=== PATIENT | female | born 1985 | race Caucasian/White ===

== ENCOUNTER 2021-05-05 01:58 | Observation (INO) ==
--- NOTE | 2021-05-05 02:55 | Progress Note ---
Date of Service May 05, 2021 Assessment & Plan (1) Vaginal bleeding during : Plan: Pt is 35yo at 33 weeks , unremarkable course presents with bleeding. denies recent intercourse FHR ; CAT No ctx SSE: Thick cervix. close, mild mucus bloody disch from cervical os Plan IVH labs sonogram Results & Data ([facility]) Vital Signs (Past 12 Hours) Vital Signs Temp Pulse Resp BP 05/05/21 02:10 36.7 C 18 05/05/21 02:08 36.7 C 18 05/05/21 02:07 99 H 130/80
[2021-05-05] MEDS: LACTATED RINGER'S 1,000 ML IV PRN ×3 (02:57→11:23)
[2021-05-05] MEDS ORDERED: BETAMETH SOD PHOS/ACETATE IA 6 MG/ML ONE (03:11)
[2021-05-05] MEDS ORDERED: BETAMETH SOD PHOS/ACETATE IA 6 MG/ML IM STA (03:13)
[2021-05-05 03:16] LABS: Hematocrit (blood only) 33.5 % (37-47); Hemoglobin 11.2 g/dL (12.0-16.0); Mean Corpuscular Hemoglobin 30.1 pg (25-34); Mean Corpuscular Hgb Conc 33.4 g/dL (32-36); Mean Corpuscular Volume 90.1 fL (80-100); Mean Platelet Volume 9.6 fL (7.4-10.4); Platelet Count 196 K/uL (130-400); RDW Coefficient of Variation 13.2 % (11.5-14.5); RDW Standard Deviation 43.5 fL (36.4-46.3); Red Blood Count 3.72 M/uL (4.2-5.4); White Blood Count 12.57 K/uL (4.8-10.8)
[2021-05-05 03:33] LABS: Albumin Level 2.4 gm/dl (3.4-5.0); BUN Creatinine Ratio 10.8 (10-20); Calcium 8.5 mg/dl (8.5-10.1); Est GFR (Non-African American) 121.7 ml/min; Potassium 3.3 mmol/L (3.5-5.1)
[2021-05-05 03:36] LABS: Albumin Globulin Ratio 0.6 (0.9-2); Bilirubin,Total 0.1 mg/dl (0.2-1); Globulin 3.9 gm/dl (2.5-4.0); Total Protein 6.3 gm/dl (6.4-8.2)
[2021-05-05 03:59] LABS: Fibrinogen 455 mg/dl (184-400); INR 0.9 (0.9-1.1); Partial Thromboplastin Time 25.5 Seconds (21.0-31.0); Prothrombin Time 9.6 Seconds (9.0-12.0)
[2021-05-05 04:08] LABS: ALC (manual) 1.86 K/uL (1.2-3.4); ANC (manual) 9.84 K/uL (1.4-6.5); Basophils # (manual) 0.21 K/uL (0-0.2); Basophils % (manual) 1.7 %; Eosinophils # (manual) 0.11 K/uL (0-0.5); Eosinophils % (manual) 0.9 %; Lymphocytes # (manual) 1.86 K/uL (1.2-3.4); Lymphocytes % (manual) 14.8 %; Monocytes # (manual) 0.33 K/uL (0.11-0.59); Monocytes % (manual) 2.6 %; Myelocytes # (manual) 0.21 K/uL (0-0); Myelocytes % (manual) 1.7 %; Neutrophils # (manual) 9.84 K/uL (1.4-6.5); Neutrophils % (manual) 78.3 %; Polychromasia 1+
--- NOTE | 2021-05-05 08:26 | Obstetrical Progress Note ---
Date of Service May 05, 2021 Assessment & Plan Admission and Anticipated Discharge Date Admission Date: May 05, 2021 Subjective Patient is a 35 yo AT 33.1 WKS presented with VB this morning Started around at 01 am with wiping only, red blood on toilet paperx4 Nothing on underwear Now it is more brownish on paper Mild cramping on and off, not painful. +FM's has been uncomplicated NST reactive US report pending, per pictures, cervix closed 4.3 cm, placenta anterior, breech, KARMA 13 cm Lab Results 05/05/21 05/05/21 05/05/21 Range/Units 03:06 03:06 03:06 WBC 12.57 H (4.8-10.8) K/uL RBC 3.72 L (4.2-5.4) M/uL Hgb 11.2 L (12.0-16.0) g/dL Hct 33.5 L (37-47) % MCV 90.1 (80-100) fL MCH 30.1 (25-34) pg MCHC 33.4 (32-36) g/dL RDW Std Deviation 43.5 (36.4-46.3) fL RDW Coeff of Jessie 13.2 (11.5-14.5) % Plt Count 196 (130-400) K/uL MPV 9.6 (7.4-10.4) fL Neutrophils % (Manual) 78.3 % Lymphocytes % (Manual) 14.8 % Monocytes % (Manual) 2.6 % Eosinophils % (Manual) 0.9 % Basophils % (Manual) 1.7 % Myelocytes % (Man) 1.7 % Neutrophils # (Manual) 9.84 H (1.4-6.5) K/uL Total Absolute Neuts 9.84 H (1.4-6.5) K/uL Lymphocytes # (Manual) 1.86 (1.2-3.4) K/uL Total Abs Lymphocytes 1.86 (1.2-3.4) K/uL Monocytes # (Manual) 0.33 (0.11-0.59) K/uL Eosinophils # (Manual) 0.11 (0-0.5) K/uL Basophils # (Manual) 0.21 H (0-0.2) K/uL Myelocytes # (Manual) 0.21 H (0-0) K/uL Polychromasia 1+ PT 9.6 (9.0-12.0) Seconds INR 0.9 (0.9-1.1) APTT 25.5 (21.0-31.0) Seconds PTT Ratio 1.0 Fibrinogen 455 H (184-400) mg/dl Fibrin Degrad Products (<10) mcg/ml Sodium 138 (136-145) mmol/L Potassium 3.3 L (3.5-5.1) mmol/L Chloride 110 H (98-107) mmol/L Carbon Dioxide 20 L (21-32) mmol/L Anion Gap 8.0 (3-11) BUN 6 L (7-18) mg/dl Creatinine 0.56 L (0.6-1.2) mg/dl Est Cr Clr Drug Dosing 142.0 ml/min Est GFR ( Amer) 141.0 ml/min Est GFR (Non-Af Amer) 121.7 ml/min BUN/Creatinine Ratio 10.8 (10-20) Glucose 98 (70-99) mg/dl Calcium 8.5 (8.5-10.1) mg/dl Total Bilirubin 0.1 L (0.2-1) mg/dl AST 16 (15-37) U/L ALT 11 L (12-78) U/L Alkaline Phosphatase 74 (45-117) U/L Total Protein 6.3 L (6.4-8.2) gm/dl Albumin 2.4 L (3.4-5.0) gm/dl Globulin 3.9 (2.5-4.0) gm/dl Albumin/Globulin Ratio 0.6 L (0.9-2) 05/05/21 Range/Units 03:06 WBC (4.8-10.8) K/uL RBC (4.2-5.4) M/uL Hgb (12.0-16.0) g/dL Hct (37-47) % MCV (80-100) fL MCH (25-34) pg MCHC (32-36) g/dL RDW Std Deviation (36.4-46.3) fL RDW Coeff of Jessie (11.5-14.5) % Plt Count (130-400) K/uL MPV (7.4-10.4) fL Neutrophils % (Manual) % Lymphocytes % (Manual) % Monocytes % (Manual) % Eosinophils % (Manual) % Basophils % (Manual) % Myelocytes % (Man) % Neutrophils # (Manual) (1.4-6.5) K/uL Total Absolute Neuts (1.4-6.5) K/uL Lymphocytes # (Manual) (1.2-3.4) K/uL Total Abs Lymphocytes (1.2-3.4) K/uL Monocytes # (Manual) (0.11-0.59) K/uL Eosinophils # (Manual) (0-0.5) K/uL Basophils # (Manual) (0-0.2) K/uL Myelocytes # (Manual) (0-0) K/uL Polychromasia PT (9.0-12.0) Seconds INR (0.9-1.1) APTT (21.0-31.0) Seconds PTT Ratio Fibrinogen (184-400) mg/dl Fibrin Degrad Products <10 (<10) mcg/ml Sodium (136-145) mmol/L Potassium (3.5-5.1) mmol/L Chloride (98-107) mmol/L Carbon Dioxide (21-32) mmol/L Anion Gap (3-11) BUN (7-18) mg/dl Creatinine (0.6-1.2) mg/dl Est Cr Clr Drug Dosing ml/min Est GFR ( Amer) ml/min Est GFR (Non-Af Amer) ml/min BUN/Creatinine Ratio (10-20) Glucose (70-99) mg/dl Calcium (8.5-10.1) mg/dl Total Bilirubin (0.2-1) mg/dl AST (15-37) U/L ALT (12-78) U/L Alkaline Phosphatase (45-117) U/L Total Protein (6.4-8.2) gm/dl Albumin (3.4-5.0) gm/dl Globulin (2.5-4.0) gm/dl Albumin/Globulin Ratio (0.9-2) Started on Betamethasone series Plan to observe monitor Results & Data ([facility]) Vital Signs (Past 12 Hours) Vital Signs Temp Pulse Resp BP 05/05/21 07:03 80 126/74 05/05/21 07:00 36.7 C 18 05/05/21 06:00 36.6 C 76 18 129/74 05/05/21 02:10 36.7 C 18 05/05/21 02:08 36.7 C 18 05/05/21 02:07 99 H 130/80
--- NOTE | 2021-05-05 08:43 | Ultrasound Report ---
ULTRASOUND LIMITED CLINICAL HISTORY: Vaginal bleeding at 33 weeks . COMPARISON STUDY: No priors. FINDINGS: Real-time grayscale and color Doppler sonography of the fetus and gravid uterus is performe d. There is a single live intrauterine gestation with estimated heart rate of 143 beats per minute. T he amniotic fluid index measures 13.0 cm, with the largest pocket of fluid measuring 5.6 cm. Presenta tion is breech. The placenta is anterior and normal as visualized. The cervix is closed and measures 4.3 cm in length. IMPRESSION: 1. There is a single live intrauterine gestation as above. 2. Note that this does not constitute a dedicated anatomic scan. Dictated: 05/05/2021 7:17 AM Transcribed: 05/05/2021 8:32 AM Johanny [id number] [facility] Electronically signed by: Igor Marrero M.D. 05/05/2021 8:41 AM
[2021-05-05] MEDS ORDERED: PRENATAL VITAMIN 1 TAB PO SCH (09:00)
[2021-05-05] MEDS ORDERED: LEVOTHYROXINE SODIUM 75 MCG TABLET PO SCH (09:00)
[2021-05-05] MEDS ORDERED: CALCIUM 600MG + VIT D 400 IU TAB PO SCH (09:00)
[2021-05-05] MEDS ORDERED: FERROUS SULFATE 325 MG TAB PO SCH (09:00)
--- NOTE | 2021-05-05 13:50 | Obstetrical Progress Note ---
Date of Service May 05, 2021 Assessment & Plan Admission and Anticipated Discharge Date Admission Date: May 05, 2021 Subjective Patient is reevaluated No VB since 10:30 am, was mild dark on toiet paper Has not wiped blood after last void, None on pads US is normal anterior placenta, breech Discussed the findings and placental abruption may or may not show on US FHR reassuring No ctxs Normal blood work Discussed d/c now and come back for 2nd dose of Celestone at 3 am tomorrow vs longer observation She lives 45 minutes away from here and decided to stay until 3 am and then d/c All questions were answered Results & Data ([facility]) Vital Signs (Past 12 Hours) Vital Signs Temp Pulse Resp BP 05/05/21 07:03 80 126/74 05/05/21 07:00 36.7 C 18 05/05/21 06:00 36.6 C 76 18 129/74 05/05/21 02:10 36.7 C 18 05/05/21 02:08 36.7 C 18 05/05/21 02:07 99 H 130/80
[2021-05-05 16:54] LABS: Hematocrit (blood only) 32.6 % (37-47); Hemoglobin 10.7 g/dL (12.0-16.0); Mean Corpuscular Hemoglobin 29.8 pg (25-34); Mean Corpuscular Hgb Conc 32.8 g/dL (32-36); Mean Corpuscular Volume 90.8 fL (80-100); Mean Platelet Volume 9.8 fL (7.4-10.4); Platelet Count 214 K/uL (130-400); RDW Coefficient of Variation 13.1 % (11.5-14.5); RDW Standard Deviation 43.8 fL (36.4-46.3); Red Blood Count 3.59 M/uL (4.2-5.4); White Blood Count 14.09 K/uL (4.8-10.8)
[2021-05-05 17:06] LABS: INR 0.9 (0.9-1.1); Partial Thromboplastin Ratio 0.9; Partial Thromboplastin Time 23.9 Seconds (21.0-31.0); Prothrombin Time 9.6 Seconds (9.0-12.0)
[2021-05-05 17:35] LABS: ALC (manual) 0.49 K/uL (1.2-3.4); ANC (manual) 13.36 K/uL (1.4-6.5); Lymphocytes # (manual) 0.49 K/uL (1.2-3.4); Lymphocytes % (manual) 3.5 %; Monocytes # (manual) 0.24 K/uL (0.11-0.59); Monocytes % (manual) 1.7 %; Neutrophils # (manual) 13.36 K/uL (1.4-6.5); Neutrophils % (manual) 94.8 %; RBC Morphology Unremarkable
[2021-05-05 17:39] LABS: Fibrinogen 428 mg/dl (184-400)
[2021-05-06] MEDS ORDERED: BETAMETH SOD PHOS/ACETATE IA 6 MG/ML IM SCH (02:45)
--- NOTE | 2021-05-17 08:36 | Discharge Summary (DS) ---
DATE OF ADMISSION: 05/05/2021 DATE OF DISCHARGE: 05/06/2021 DETAILS OF ADMISSION: The patient is a 35-year-old G2, P0-0-1-0, at 33 weeks and 1 day gestation, wh o presented to labor and delivery on the morning of 05/05/2021 with vaginal bleeding. It was light, but red blood, started at 1:00 a.m. She denies any other problems and she reported good moveme nts. Her blood work including CBC, coagulations and CMP were within normal limits on admission. Feta l heart rate was reassuring. Her cervix was closed with 4.3 cm length, confirmed by ultrasound. Karen centa was anterior, normal appearance. Baby was breech. The patient was observed. heart rate remained reassuring. No signs or symptoms of labor and then she was rechecked again by nova james in the afternoon, she had no bleeding since 10:30 a.m. and last bloody discharge was dark and small . The patient received betamethasone, started at 3:00 a.m. on admission. She stayed overnight and arianne alvarez received a second dose on 05/06/2021. She had no complaints, no contractions and heart rate remained reassuring. She had no more bleeding. She was discharged on the . Discharge instructio ns were given. She is to be seen in the office. All questions were answered. Job ID: [id number]
== END 2021-05-06 03:45 | disposition home or self-care (01) ==
LOC: 4S1 01:58 → OPB 01:58 → 4S1 02:02

== ENCOUNTER 2021-06-20 05:18 | Inpatient (IN) ==
--- NOTE | 2021-06-11 12:43 | Anesthesiology Consultation ---
Date of Service June 11, 2021 Assessment & Plan (1) Encounter for pre-operative examination: Chart Review Chart Review: entry level recruiter initiated Per nursing assessment 06/11/2021, patient denies any recent travel. No known Covid infection in the past 90 days. Patient is fully vaccinated for Covid. No known Covid positive exposures or Covid related symptoms. Preop Covid testing scheduled 06/18/21= will await results D&E, Exam Under Anesthesia 03/10/20= Done under GA with MAC #3. ETT #7.0. Atraumatic DL x 1 History Surgery Operation Date: 06/20/21 07:30 Proposed Procedures p Section - Paulino Hoffman MD Height/Weight Height: 5 ft 3 in Weight: 83.007 kg Allergies Allergy/AdvReac Type Severity Reaction Status Date / Time Sulfa (Sulfonamide Allergy Intermediate Hives Verified 06/11/21 11:45 Antibiotics) Medications Home Medications Medication Instructions Recorded Confirmed Last Taken [id number] 1 mg 1 tab PO QAM 03/09/20 06/11/21 05/04/21 08:00 tablet calcium carbonate 500 mg-vitamin 1 tab PO DAILY 03/31/21 06/11/21 05/04/21 08:00 D3 5 mcg (200 unit) tablet (Calcium 500 + D) ferrous sulfate 325 mg (65 mg 325 mg PO DAILY 03/31/21 06/11/21 05/04/21 20:00 iron) tablet (iron) levothyroxine 75 mcg tablet 75 mcg PO QAM 03/31/21 06/11/21 05/04/21 07:00 Past Medical History Medical History Endometriosis GERD (gastroesophageal reflux disease) Hypothyroid IBS (irritable bowel syndrome) Migraine Sarcoidosis Patient reports this 5+ years ago. No issues since. Past Family History Family History Grandmother (Maternal) Family history of diabetes mellitus Other No family history of adverse response to anesthesia Past Surgical History Surgical History History of colonoscopy History of esophagogastroduodenoscopy (EGD) History of tonsillectomy and adenoidectomy Hx of gynecological procedure D&E Robbins teeth removed Social History Smoking Status: Never smoker Hx Alcohol Use: No alcohol intake frequency: a few times a month substance use type: does not use Lab Results Anesthesia Preop Results Results Anesthesia Widget: WBC 14.09 K/uL (4.8-10.8) H 05/05/21 Hgb 10.7 g/dL (12.0-16.0) L 05/05/21 Hct 32.6 % (37-47) L 05/05/21 Plt 214 K/uL (130-400) 05/05/21 Na 138 mmol/L (136-145) 05/05/21 K 3.3 mmol/L (3.5-5.1) L 05/05/21 Cl 110 mmol/L (98-107) H 05/05/21 CO2 20 mmol/L (21-32) L 05/05/21 BUN 6 mg/dl (7-18) L 05/05/21 Creat 0.56 mg/dl (0.6-1.2) L 05/05/21 Glucose Level 98 mg/dl (70-99) 05/05/21 PT 9.6 Seconds (9.0-12.0) 05/05/21 PTT 23.9 Seconds (21.0-31.0) 05/05/21 INR 0.9 (0.9-1.1) 05/05/21 Lab Comments: Leukocytosis- patient admitted at time of labs- secondary to vaginal bleedi ng- OB reviewed labs - observed overnight prior to being discharged
[2021-06-20] MEDS ORDERED: LACTATED RINGER'S 1,000 ML IV SCH ×3 (05:30→06:30)
[2021-06-20 05:44] LABS: Basophils # (auto) 0.02 K/uL (0-0.2); Basophils % (auto) 0.2 %; Eosinophils # (auto) 0.14 K/uL (0-0.5); Eosinophils % (auto) 1.2 %; Hematocrit (blood only) 36.1 % (37-47); Hemoglobin 12.2 g/dL (12.0-16.0); Immature Granulocytes # (auto) 0.23 K/uL (0.00-0.02); Lymphocytes # (auto) 1.95 K/uL (1.2-3.4); Mean Corpuscular Hemoglobin 30.1 pg (25-34); Mean Corpuscular Volume 89.1 fL (80-100); Mean Platelet Volume 9.7 fL (7.4-10.4); Monocytes # (auto) 0.84 K/uL (0.11-0.59); Monocytes % (auto) 7.3 %; Neutrophils % (auto) 72.3 %; Platelet Count 192 K/uL (130-400); RDW Coefficient of Variation 13.6 % (11.5-14.5); RDW Standard Deviation 44.5 fL (36.4-46.3); Red Blood Count 4.05 M/uL (4.2-5.4); White Blood Count 11.48 K/uL (4.8-10.8)
[2021-06-20 05:50] LABS: Mean Corpuscular Hgb Conc 33.8 g/dL (32-36)
[2021-06-20] MEDS ORDERED: CITRIC ACID/SODIUM CITRATE 15 ML UDC PO SCH (06:00)
[2021-06-20] MEDS ORDERED: ceFAZolin 2000MG 2,000 MG/15 ML SYR IV SCH ×2 (06:00)
[2021-06-20] MEDS ORDERED: fentaNYL citrate 100 MCG/2 ML VIAL ONE (06:36)
[2021-06-20] MEDS ORDERED: OXYTOCIN 10 UNITS/ML 10ML VIAL ONE (06:36)
[2021-06-20] MEDS ORDERED: MoRPHine SULFATE PF 1 MG/ML 10 ML AMP/VIAL ONE (06:37)
--- NOTE | 2021-06-20 07:28 | History & Physical Bridge Note ---
Date of Service June 20, 2021 History & Physical Bridge Note I have examined the patient, reviewed the History & Physical and in the interval since the performance of the History & Physical I have noted the following changes of clinical significance: no changes noted Bed side US: Complete breech, FHR 130 Patient signed an informed consent for Primary LTCS
[2021-06-20] MEDS ORDERED: ePHEDrine sulfate 50 MG/ML SYR ONE (08:01)
[2021-06-20] MEDS ORDERED: PHENYLEPHRINE 100MCG/ML 5ML SYR ONE (08:01)
[2021-06-20] MEDS ORDERED: ONDANSETRON INJ 2 MG/ML 2 ML VIAL ONE (08:04)
[2021-06-20] MEDS ORDERED: diphenhydrAMINE 50 MG/ML VIAL IV PRN (08:40)
[2021-06-20] MEDS ORDERED: LACTATED RINGER'S 500 ML IV PRN (08:40)
[2021-06-20] MEDS ORDERED: ONDANSETRON INJ 2 MG/ML 2 ML VIAL IV PRN (08:40)
[2021-06-20] MEDS ORDERED: NALOXONE HCL 0.4 MG/1 ML VIAL/CARP IV PRN (08:40)
[2021-06-20] MEDS ORDERED: MoRPHine SULFATE 2 MG/ML CARP IV PRN (08:40)
[2021-06-20] MEDS ORDERED: ePHEDrine sulfate 50 MG/ML AMP IV PRN (08:40)
[2021-06-20] MEDS ORDERED: NALOXONE HCL 1 MG in SODIUM CHLORIDE 0.9% 1000ML 1,000 ML IV PRN (08:40)
[2021-06-20] MEDS ORDERED: NALBUPHINE HCL INJ 10 MG/ML AMP IV PRN (08:40)
[2021-06-20] MEDS ORDERED: MoRPHine SULFATE PF 1 MG/ML 10 ML AMP/VIAL INT SPINAL ONE (08:40)
[2021-06-20] MEDS ORDERED: NALOXONE HCL 0.08 MG in SYRINGE 1.8 ML IV PRN (08:40)
[2021-06-20] MEDS ORDERED: NO NARCOTICS OR SEDATIVES SCH (08:45)
[2021-06-20] MEDS ORDERED: DC INTRASPINAL MORPHINE SCH (08:45)
[2021-06-20] MEDS ORDERED: SODIUM CHLORIDE 0.9% 1000ML 1,000 ML IV SCH (08:45)
[2021-06-20] MEDS ORDERED: SENNA 8.6 MG TAB PO PRN (09:08)
[2021-06-20] MEDS ORDERED: BENZOCAINE 20% AER SPR 82.5 GM CAN EXT PRN (09:08)
[2021-06-20] MEDS ORDERED: SUPERCREAM 0.870% 15 GM JAR EXT PRN (09:08)
[2021-06-20] MEDS ORDERED: HYDROCORTISONE ACETATE 25 MG SUPP PR PRN (09:08)
[2021-06-20] MEDS ORDERED: MEASLES, MUMPS & RUBELLA VIRUS VIAL SQ ONE (09:08)
[2021-06-20] MEDS ORDERED: MAGNESIUM HYDROXIDE SUSP 30 ML UDC PO PRN (09:08)
[2021-06-20] MEDS ORDERED: DIPHTHERIA/TETANUS/PERTUSSIS 0.5 ML SYR/VIAL IM ONE (09:08)
--- NOTE | 2021-06-20 09:08 | Post Operative Brief Note ---
Immediate Post Op Note v1 Date of Surgery June 20, 2021 Pre & Post Diagnosis Operation Date: 06/20/21 07:30 Pre-Op Diagnosis: 1. Breech Presentation at Term Post-Op Diagnosis: Same I identified the patient and participated in the time-out.: Yes Procedure Operation Date: 06/20/21 07:30 Actual Procedures p Section in LD OR #3; Primary Lower Uterine Transverse Section for the of a viable girl infant at 0822(Bilateral) - Paulino Sherman MD Surgeon Paulino Hoffman MD [facility] Dr Kelley Estimated Blood Loss 350 Findings Consistent with Post-Op Diagnosis Drains Gamez Catheter (Gamez catheter inserted without difficulty patent and draining clear yellow urine. ) Anesthesia Type Spinal Complications none
[2021-06-20] MEDS: OXYTOCIN 20 UNITS in LACTATED RINGER'S 1,000 ML IV SCH ×2 (10:26→18:31)
--- NOTE | 2021-06-20 10:41 | Operative Report (OR) ---
DATE OF SURGERY: 06/20/2021 PREOPERATIVE DIAGNOSES: The patient is a 36-year-old 1, para 0, at 39 weeks and 5 days of gestation with breech presentation at term, declined external cephalic version. POSTOPERATIVE DIAGNOSES: The patient is a 36-year-old 1, para 0, at 39 weeks and 5 days of gestation with breech presentation at term, declined external cephalic version. PROCEDURE: Primary low transverse with Pfannenstiel skin incision. SURGEON: Paulino Hoffman MD. LABORATORY AIDE: Kristan Kelley MD. ESTIMATED BLOOD LOSS: 500 mL. DRAINS: Gamez catheter drained 100 mL of clear urine. ANESTHESIA: Spinal. ANESTHESIOLOGIST: Dr. Domínguez. COMPLICATIONS: None. FINDINGS: Baby was a viable female infant delivered at 8:22 a.m. Apgars were 9/9. Baby was in footling breech presentation, weight was 3810 grams. Maternal findings: Normal fallopian tubes and ovaries. There was a subserosal partly intramural fibroid on the fundus of the uterus about 6 x 8 cm. The rest of the uterus was normal. DESCRIPTION OF PROCEDURE: The patient was taken to the operating room where spinal anesthesia was given without difficulty. She was placed in dorsal supine position with a leftward tilt. She was prepared and draped in the usual sterile fashion. A Pfannenstiel skin incision was made, carried through to the underlying layer of fascia with the Bovie. Fascia was incised in the midline and incision was extended laterally with the help of Conrad scissors. Upper aspect of the fascial incision was then grasped with 2 Valente clamps, elevated, and the underlying rectus muscles were dissected off sharply with Conrad scissors. Lower aspect of the fascial incision was grasped with 2 Valente clamps, elevated and the underlying rectus muscles were dissected off sharply with Conrad scissors. Rectus muscles were in the midline. Peritoneum was identified and entered bluntly with fingers. Peritoneal incision was extended superiorly and inferiorly with good visualization of the bladder. Bladder blade was inserted and vesicouterine peritoneum was identified, grasped with pickups, and entered sharply with Metzenbaum scissors. Bladder flap was created digitally and bladder blade was reinserted. Lower uterine segment was incised in a transverse fashion. The incision was extended laterally with the help of bandage scissors. Membranes were ruptured. Clear fluid was obtained. Baby's feet were grasped and then legs were delivered and then body and then arms in flexion position and then head without difficulty. Mouth and nose were suctioned. Cord was clamped x2 and cut. Baby was handed off to the waiting pediatric team with Dr. Albright, and the placenta was delivered manually as intact and complete. Uterus was exteriorized and cleared of all clots and debris. This uterine incision was repaired with 0 Vicryl in a running locked fashion. Second imbricating layer was placed with another 0 Vicryl in a running locked fashion. Excellent hemostasis was achieved. Cul-de-sac was irrigated with warm normal saline and suctioned. Uterus was returned to the abdomen and pelvis was irrigated with warm normal saline and suctioned. There was a small oozing close to the left corner, which was controlled with [id number] stitches x2 and the incision was covered with Dennis powder and the incision was hemostatic. Parietal peritoneum was reapproximated with 3-0 Vicryl in a running fashion. Rectus muscles were also brought together with the same suture in a running fashion. Under the fascia and over the rectus muscles were hemostatic. Rectus fascia was reapproximated with 0 Vicryl in a running fashion starting from both corners meeting in the midline and subcuticular fat tissue was brought together with 3-0 Vicryl in a running fashion. The skin was closed with 4-0 Monocryl in a subcuticular fashion. No complications happened. I was present and Dr. Kelley was present during the whole procedure. My sales operations assistant was needed for retraction, exposure, hemostasis control and aid in delivery of the infant during surgery. At the end of surgery, sponge, needle, and instrument count was correct x3. Job ID: [id number] [facility]
--- NOTE | 2021-06-20 14:20 | Anesthesiology Progress Note ---
Date of Service June 20, 2021 Anesthesia Post Procedure Vital Signs Vital Signs: Temp Pulse Pulse Resp BP BP Pulse Ox 06/20/21 14:00 20 97 06/20/21 13:25 36.4 C L 74 20 135/81 99 06/20/21 13:00 35.8 C L 06/20/21 12:45 20 99 06/20/21 12:05 65 18 109/72 99 06/20/21 11:42 67 100 06/20/21 11:37 36.3 C L 64 18 100 06/20/21 11:32 71 100 06/20/21 11:31 64 124/72 06/20/21 11:27 68 98 06/20/21 11:22 83 100 06/20/21 11:17 80 99 06/20/21 11:12 64 99 06/20/21 11:07 63 98 06/20/21 11:02 63 98 06/20/21 11:01 65 129/64 06/20/21 11:00 36.3 C L 18 06/20/21 10:57 69 99 06/20/21 10:52 78 97 06/20/21 10:47 61 98 06/20/21 10:42 67 99 06/20/21 10:37 68 97 06/20/21 10:32 68 100 06/20/21 10:30 36.3 C L 65 18 124/72 06/20/21 10:27 67 97 06/20/21 10:23 36.3 C L 18 06/20/21 10:22 62 99 06/20/21 10:21 63 123/70 06/20/21 10:17 67 98 06/20/21 10:12 61 93 06/20/21 10:10 66 122/58 L 06/20/21 10:07 62 100 06/20/21 10:02 65 97 06/20/21 10:01 76 147/73 H 06/20/21 09:57 108 H 99 06/20/21 09:52 66 98 06/20/21 09:51 36.4 C L 18 06/20/21 09:50 62 130/60 06/20/21 09:47 71 99 06/20/21 09:46 68 93 06/20/21 09:42 65 98 06/20/21 09:40 64 139/69 06/20/21 09:37 66 98 06/20/21 09:32 83 100 06/20/21 09:30 75 132/65 06/20/21 09:27 74 100 06/20/21 09:22 71 100 06/20/21 09:20 36.4 C L 78 18 91 06/20/21 09:17 68 130/66 100 06/20/21 05:43 80 129/81 06/20/21 05:37 36.5 C 18 Pain Intensity Bilateral Lower Abdomen: Pain Intensity: 5 Transfer of Care Handoff Completed per policy Notes Mental Status: alert / awake / arousable and participated in evaluation Patient Amnestic to Procedure: Yes Nausea / Vomiting: adequately controlled Pain: adequately controlled Airway Patency, RR, SpO2: stable & adequate BP & HR: stable & adequate Hydration State: stable & adequate Anesthetic Complications: no major complications apparent and Pt Satisfied with anesthetic care
[2021-06-20] MEDS: DOCUSATE SODIUM 100 MG CAP PO SCH (21:22)
[2021-06-20] MEDS: SIMETHICONE 80 MG CHEW PO SCH (21:22)
[2021-06-21] MEDS ORDERED: MEPERIDINE HCL 50 MG/ML CARP IV PRN (02:40)
[2021-06-21] MEDS ORDERED: LACTATED RINGER'S 1,000 ML IV SCH (02:40)
[2021-06-21] MEDS ORDERED: PROMETHAZINE HCL 25 MG in SODIUM CHLORIDE 0.9% 50 ML IV PRN (02:40)
[2021-06-21] MEDS ORDERED: ONDANSETRON INJ 2 MG/ML 2 ML VIAL IV PRN (02:40)
[2021-06-21] MEDS ORDERED: diphenhydrAMINE Capsule 25 MG CAP PO PRN (02:40)
[2021-06-21] MEDS ORDERED: KETOROLAC 30 MG/ML VIAL IV PRN (02:40)
[2021-06-21] MEDS ORDERED: diphenhydrAMINE 50 MG/ML VIAL IV PRN (02:40)
[2021-06-21] MEDS: oxyCODONE/ACETAMINOPHEN 5mg/325mg TAB PO PRN ×5 (03:17→21:34)
[2021-06-21] MEDS: IBUPROFEN 600 MG TAB PO PRN ×5 (03:17→21:34)
[2021-06-21 07:21] LABS: Basophils # (auto) 0.02 K/uL (0-0.2); Basophils % (auto) 0.2 %; Eosinophils # (auto) 0.05 K/uL (0-0.5); Eosinophils % (auto) 0.4 %; Hematocrit (blood only) 30.5 % (37-47); Immature Granulocytes # (auto) 0.08 K/uL (0.00-0.02); Immature Granulocytes % (auto) 0.6 %; Lymphocytes # (auto) 1.31 K/uL (1.2-3.4); Lymphocytes % (auto) 10.1 %; Mean Corpuscular Hemoglobin 29.4 pg (25-34); Mean Corpuscular Hgb Conc 32.8 g/dL (32-36); Mean Corpuscular Volume 89.7 fL (80-100); Mean Platelet Volume 10.1 fL (7.4-10.4); Monocytes # (auto) 0.85 K/uL (0.11-0.59); Monocytes % (auto) 6.5 %; Neutrophils # (auto) 10.69 K/uL (1.4-6.5); Neutrophils % (auto) 82.2 %; Platelet Count 186 K/uL (130-400); RDW Coefficient of Variation 13.9 % (11.5-14.5); RDW Standard Deviation 45.3 fL (36.4-46.3)
[2021-06-21] MEDS: FERROUS SULFATE 325 MG TAB PO SCH (08:28)
[2021-06-21] MEDS: SIMETHICONE 80 MG CHEW PO SCH ×4 (08:28→21:34)
[2021-06-21] MEDS: DOCUSATE SODIUM 100 MG CAP PO SCH ×2 (08:28→21:34)
[2021-06-21] MEDS: PRENATAL VITAMIN 1 TAB PO SCH (08:28)
--- NOTE | 2021-06-21 08:50 | Obstetrical Progress Note ---
Date of Service June 21, 2021 Subjective Ambulation: limited ambulation Voiding: no voiding problems Passing Gas:: Yes Diet Tolerance:: regular diet Lochia:: Small Feeding Type:: breast feeding Current Pain Level(1-10): 0 doing well Physical Exam Constitutional WD/WN, vitals as above comfortable abdomen soft and non-tender incision c/d/i no edema neg Dre's will increase diet/activity Results & Data ([facility]) Vital Signs (Past 12 Hours) Vital Signs Temp Pulse Resp BP Pulse Ox 06/21/21 03:00 37.0 C 73 20 124/76 98 06/21/21 02:16 18 97 06/21/21 01:20 18 95 06/21/21 00:22 16 95 06/20/21 23:10 37.0 C 76 18 113/64 97 06/20/21 22:35 18 97 06/20/21 21:15 20 97 Laboratory Results Laboratory Results - last 48 hr 06/20/21 06/20/21 06/21/21 05:31 05:35 06:50 WBC 11.48 H 13.00 H RBC 4.05 L 3.40 L Hgb 12.2 10.0 L Hct 36.1 L 30.5 L MCV 89.1 89.7 MCH 30.1 29.4 MCHC 33.8 32.8 RDW Std Deviation 44.5 45.3 RDW Coeff of Jessie 13.6 13.9 Plt Count 192 186 MPV 9.7 10.1 Immature Gran % (Auto) 2.0 0.6 Neut % (Auto) 72.3 82.2 Lymph % (Auto) 17.0 10.1 [place] % (Auto) 7.3 6.5 Eos % (Auto) 1.2 0.4 Baso % (Auto) 0.2 0.2 Neut # (Auto) 8.30 H 10.69 H Lymph # (Auto) 1.95 1.31 [place] # (Auto) 0.84 H 0.85 H Eos # (Auto) 0.14 0.05 Baso # (Auto) 0.02 0.02 Immature Gran # (Auto) 0.23 H 0.08 H Blood Type B Positive Antibody Screen NEGATIVE
[2021-06-21] MEDS: LEVOTHYROXINE SODIUM 75 MCG TABLET PO SCH (10:48)
[2021-06-21] MEDS ORDERED: bisacodyL 5 MG TABEC PO SCH (20:00)
[2021-06-22] MEDS: oxyCODONE/ACETAMINOPHEN 5mg/325mg TAB PO PRN ×3 (04:42→13:35)
[2021-06-22] MEDS: IBUPROFEN 600 MG TAB PO PRN ×3 (04:42→13:34)
[2021-06-22] MEDS: LEVOTHYROXINE SODIUM 75 MCG TABLET PO SCH (06:15)
[2021-06-22 06:21] LABS: Hematocrit (blood only) 29.3 % (37-47); Hemoglobin 9.6 g/dL (12.0-16.0)
--- NOTE | 2021-06-22 08:14 | Obstetrical Progress Note ---
Date of Service June 22, 2021 Assessment & Plan Admission and Anticipated Discharge Date Admission Date: June 20, 2021 Subjective Patient is seen and examined. She feels well, no complaints. Pain is under control with oral meds. Ambulating without dizzinesss Voiding without difficulty Tolerating regular diet with out N&V Flatus + BM neg, took MOM Bleeding is minimal No fever/ chills/ CP/ SOB/ N&V/ Leg pain Breast feeding without problems Vital Signs Temp Pulse Resp BP Pulse Ox 06/22/21 08:00 36.9 C 68 18 126/77 99 06/21/21 23:41 37.1 C 66 18 114/67 98 06/21/21 19:40 37.1 C 73 20 115/79 97 06/21/21 12:25 37.1 C 77 16 119/74 96 Lab Results 06/20/21 06/20/21 06/21/21 Range/Units 05:31 05:35 06:50 WBC 11.48 H 13.00 H (4.8-10.8) K/uL RBC 4.05 L 3.40 L (4.2-5.4) M/uL Hgb 12.2 10.0 L (12.0-16.0) g/dL Hct 36.1 L 30.5 L (37-47) % MCV 89.1 89.7 (80-100) fL MCH 30.1 29.4 (25-34) pg MCHC 33.8 32.8 (32-36) g/dL RDW Std Deviation 44.5 45.3 (36.4-46.3) fL RDW Coeff of Jessie 13.6 13.9 (11.5-14.5) % Plt Count 192 186 (130-400) K/uL MPV 9.7 10.1 (7.4-10.4) fL Immature Gran % (Auto) 2.0 0.6 % Neut % (Auto) 72.3 82.2 % Lymph % (Auto) 17.0 10.1 % [place] % (Auto) 7.3 6.5 % Eos % (Auto) 1.2 0.4 % Baso % (Auto) 0.2 0.2 % Neut # (Auto) 8.30 H 10.69 H (1.4-6.5) K/uL Lymph # (Auto) 1.95 1.31 (1.2-3.4) K/uL [place] # (Auto) 0.84 H 0.85 H (0.11-0.59) K/uL Eos # (Auto) 0.14 0.05 (0-0.5) K/uL Baso # (Auto) 0.02 0.02 (0-0.2) K/uL Immature Gran # (Auto) 0.23 H 0.08 H (0.00-0.02) K/uL Blood Type B Positive Antibody Screen NEGATIVE 06/22/21 Range/Units 05:48 WBC (4.8-10.8) K/uL RBC (4.2-5.4) M/uL Hgb 9.6 L (12.0-16.0) g/dL Hct 29.3 L (37-47) % MCV (80-100) fL MCH (25-34) pg MCHC (32-36) g/dL RDW Std Deviation (36.4-46.3) fL RDW Coeff of Jessie (11.5-14.5) % Plt Count (130-400) K/uL MPV (7.4-10.4) fL Immature Gran % (Auto) % Neut % (Auto) % Lymph % (Auto) % [place] % (Auto) % Eos % (Auto) % Baso % (Auto) % Neut # (Auto) (1.4-6.5) K/uL Lymph # (Auto) (1.2-3.4) K/uL [place] # (Auto) (0.11-0.59) K/uL Eos # (Auto) (0-0.5) K/uL Baso # (Auto) (0-0.2) K/uL Immature Gran # (Auto) (0.00-0.02) K/uL Blood Type Antibody Screen PE: General: Alert, orientedx3, NAD CVS: S1S2 RRR Lungs; CTAB Abd: soft, NT, ND, BS+, fundus firm, below Umbilicus Incision: Clean, dry, intact Perineum intact, Lochia rubra minimal Ext; NT, no edema AP: 36 yo s/p C Section, pod# 2 VSS Afebrile doing well Continue routine postop care Encourage ambulation, PO intake All questions were answered Desrires D/C home if baby will be discharged today. Results & Data ([facility]) Vital Signs (Past 12 Hours) Vital Signs Temp Pulse Resp BP Pulse Ox 06/22/21 08:00 36.9 C 68 18 126/77 99 06/21/21 23:41 37.1 C 66 18 114/67 98
[2021-06-22] MEDS: SIMETHICONE 80 MG CHEW PO SCH (08:57)
[2021-06-22] MEDS: DOCUSATE SODIUM 100 MG CAP PO SCH (08:58)
[2021-06-22] MEDS: FERROUS SULFATE 325 MG TAB PO SCH (08:58)
[2021-06-22] MEDS: PRENATAL VITAMIN 1 TAB PO SCH (08:58)
[2021-06-22] MEDS ORDERED: bisacodyL 10 MG SUPP PR PRN (09:09)
--- NOTE | 2021-06-26 09:32 | Discharge Summary (DS) ---
DATE OF ADMISSION: 06/20/2021 DATE OF DISCHARGE: 06/22/2021 DETAILS OF ADMISSION: The patient is a 36-year-old G1, P0, at 39 weeks and 5 days of gestation, pres ented to labor and delivery for scheduled primary due to breech presentation. She was take n to the OR and delivered a viable female infant at 8:22 a.m. in breech presentation. Her surgery wa s uncomplicated. See dictated OP note for details. On postop period, the patient was doing well, vi paulette signs stable, afebrile. Urine output was good. She was continuously monitored. On postop day # 1, the patient was doing well, vital signs stable, afebrile. Her H and H was 10/30.5. She was breas tfeeding, tolerating regular diet, passing gas. Her physical exam was unremarkable. Incision was cl marilyn, dry and intact. Abdomen was soft, nontender, nondistended. On postop day #2, the patient was d oing well, vital signs stable, afebrile, ambulating without difficulty, tolerating regular diet, pass ing gas, without problems. She wanted to be discharged on postoperative day #2. Her p hysical exam was unremarkable. Incision was clean, dry and intact. Extremities nontender, no edema. Bleeding was minimal. She was discharged on postoperative day #2. Discharge instructions were given. Prescriptions were w ritten for pain. She is to be seen in the office in a week. Job ID: [id number]
== END 2021-06-22 14:15 | disposition home or self-care (01) | DRG 788 ==
LOC: 4S1 05:18 → EDSTATUS 07:30 → 4S2 12:00